=== PATIENT | female | born 2000 | race Two or more races ===

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

== ENCOUNTER 2020-01-21 17:52 | Emergency (ER) | payer SELFPAY ==
--- NOTE | 2020-01-21 18:30 | ER Document Report ---
ED Medical Screen (RME) - General Chief Complaint: Vaginal Bleeding Stated Complaint: HEAVY VAGINAL BLEEDING Time Seen by Provider: 01/21/20 18:26 Mode of Arrival: Ambulatory Information source: Patient Notes: Patient presents complaining of heavy vaginal bleeding for the past week with clots. Patient denies any lightheadedness or dizziness. Patient denies any fever. Patient denies any urinary symptoms. Patient is not presently on any control. I have greeted and performed a rapid initial assessment of this patient. A comprehensive ED assessment and evaluation of the patient, analysis of test results and completion of the medical decision making process will be conducted by additional ED providers. TRAVEL OUTSIDE OF THE [place] IN LAST 30 DAYS: No - Related Data Allergies/Adverse Reactions: No Known Allergies Allergy (Verified 08/26/15 20:26) Past Medical History Renal/ Medical History: Denies: Hx Peritoneal Dialysis - Immunizations Immunizations up to date: Yes Physical Exam - Vital signs Vitals: Temp Pulse Resp BP Pulse Ox 98.5 F 82 16 144/82 H 100 01/21/20 18:10 01/21/20 18:10 01/21/20 18:10 01/21/20 18:10 01/21/20 18:10 - General General appearance: Appears well, Alert In distress: None Course - Vital Signs Vital signs: Temp Pulse Resp BP Pulse Ox 98.5 F 82 16 144/82 H 100 01/21/20 18:10 01/21/20 18:10 01/21/20 18:10 01/21/20 18:10 01/21/20 18:10
[2020-01-21 19:21] LABS: ABSOLUTE EOSINOPHILS # (AUTO) 0.1 10^3/uL (0.0-0.6); ABSOLUTE LYMPHOCYTES (AUTO) 2.9 10^3/uL (0.5-4.7); ABSOLUTE MONOCYTES (AUTO) 0.5 10^3/uL (0.1-1.4); ABSOLUTE NEUT (AUTO) 2.5 10^3/uL (1.7-8.2); BASOPHILS % (AUTO) 0.4 % (0-2); EOSINOPHILS % (AUTO) 0.9 % (0-6); HEMATOCRIT 36.2 % (36.0-47.0); HEMOGLOBIN 12.7 g/dL (12.0-15.5); LYMPHOCYTES % (AUTO) 47.5 % (13-45); MEAN CORPUSCULAR HEMOGLOBIN 26.5 pg (27.0-33.4); MEAN CORPUSCULAR HGB CONC 35.1 g/dL (32.0-36.0); MEAN CORPUSCULAR VOLUME 75 fl (80-97); PLATELET COUNT 322 10^3/uL (150-450); RED CELL DISTRIBUTION WIDTH 14.7 % (11.5-14.0); SEGMENTED NEUTROPHILS % (AUTO) 42.2 % (42-78); TOTAL CELLS COUNTED % (AUTO) 100 %
[2020-01-21 19:25] LABS: ALBUMIN 4.3 g/dL (3.7-5.6); ALKALINE PHOSPHATASE 105 U/L (50-135); ANION GAP 12 (5-19); ASPARTATE AMINO TRANSFERASE 60 U/L (5-30); BILIRUBIN,DIRECT 0.3 mg/dL (0.0-0.4); BILIRUBIN,TOTAL 0.5 mg/dL (0.2-1.3); BLOOD UREA NITROGEN 11 mg/dL (7-20); CALCIUM 9.5 mg/dL (8.4-10.2); CARBON DIOXIDE 24 mmol/L (22-30); CHLORIDE 105 mmol/L (98-107); GLUCOSE 89 mg/dL (75-110); NEONATAL BILIRUBIN RESULT 0.2 mg/dL (0.1-1.1); TOTAL PROTEIN 7.5 g/dL (6.3-8.2)
--- NOTE | 2020-01-21 19:58 | RADIOLOGY REPORT (SQ) ---
EXAM DESCRIPTION: U/S NON OB PEL W/DOPPLER IMAGES COMPLETED DATE/TIME: 01/21/2020 7:40 pm REASON FOR STUDY: heavy vag bleeding COMPARISON: None. TECHNIQUE: Dynamic and static grayscale images acquired of the pelvis via transabdominal approach an d recorded on PACS. Additional selected color Doppler and spectral images recorded. LIMITATIONS: None. FINDINGS: UTERUS: Contour normal. No mass. ENDOMETRIAL STRIPE: No focal or generalized thickening. No masses. CERVIX: 2 cm. RIGHT OVARY AND DOPPLER: Normal size. No worrisome masses. Multiple follicles. Normal arterial vasc ular flow without evidence for torsion. LEFT OVARY AND DOPPLER: Normal size. No worrisome masses. Multiple follicles. Normal arterial vascu lar flow without evidence for torsion. FREE FLUID: None noted. OTHER: No other significant finding. MEASUREMENTS: UTERUS: 6 x 4 x 3 cm. ENDOMETRIAL STRIPE: 8 mm. There may be some blood in the endometrial canal. RIGHT OVARY: 4 x 3 x 2 cm LEFT OVARY: 3 x 4 x 2 cm IMPRESSION: Multiple ovarian follicles are seen bilaterally. This may suggest polycystic ovarian sy ndrome. No other significant finding. TECHNICAL DOCUMENTATION: JOB ID: [id number] 2010 [employer]- All Rights Reserved Rev-09/05 Reading location - IP/workstation name: [email or web address]
[2020-01-22 00:02] LABS: CHLAM PCR NOT DETECTED (NOT DETECT)
--- NOTE | 2020-01-22 01:14 | ER Document Report ---
ED General - General Chief Complaint: Vaginal Bleeding Stated Complaint: HEAVY VAGINAL BLEEDING Time Seen by Provider: 01/21/20 18:26 Mode of Arrival: Ambulatory Information source: Patient, Friend Notes: Patient is a 19-year-old female presenting to the emergency department chief complaint of dysfunctional uterine bleeding. She states she has been on her period for about 2 weeks. She states normally it lasts about 3 to 4 days. Patient states that the intensity of the bleeding is about the same she is using 3-4 pads per day however this is been ongoing for 14 days. Patient denies any other complaints no nausea vomiting diarrhea fevers chills cough or cold symptoms. TRAVEL OUTSIDE OF THE [place] IN LAST 30 DAYS: No - HPI Onset: Other - 2 wk Onset/Duration: Persistent Quality of pain: Cramping Severity: Mild Pain Level: 1 Associated symptoms: None Exacerbated by: Denies Relieved by: Denies Similar symptoms previously: No Recently seen / treated by doctor: No - Related Data Allergies/Adverse Reactions: No Known Allergies Allergy (Verified 08/26/15 20:26) Past Medical History - General Information source: Patient - Social History Smoking Status: Never Smoker Chew tobacco use (# tins/day): No Frequency of alcohol use: None Drug Abuse: None Lives with: Family Family History: Reviewed & Not Pertinent Patient has suicidal ideation: No Patient has homicidal ideation: No - Medical History Medical History: Negative Renal/ Medical History: Denies: Hx Peritoneal Dialysis Surgical Hx: Negative - Immunizations Immunizations up to date: Yes Review of Systems - Review of Systems Notes: REVIEW OF SYSTEMS: CONSTITUTIONAL : Denies fever, chills, or sweats. Denies recent illness. EENT: Denies eye, ear, throat, or mouth pain or symptoms. Denies nasal or sinus congestion. CARDIOVASCULAR: Denies chest pain. RESPIRATORY: Denies cough, cold, or chest congestion. Denies shortness of breath, difficulty breathing, or wheezing. GASTROINTESTINAL: Denies abdominal pain. Denies nausea, vomiting, or diarrhea. Denies constipation. GENITOURINARY: Per HPI MUSCULOSKELETAL: Denies neck or back pain or joint pain or swelling. SKIN: Denies rash or skin lesions. HEMATOLOGIC : Denies easy bruising or bleeding. NEUROLOGICAL: Denies altered mental status or loss of consciousness. Denies headache. Denies weakness or paralysis or loss of use of either side. Denies problems with gait or speech. Denies sensory or motor loss. PSYCHIATRIC: Denies suicidal or homicidal ideations 10 Systems are negative unless otherwise specified above Physical Exam - Vital signs Vitals: Temp Pulse Resp BP Pulse Ox 98.5 F 82 16 144/82 H 100 01/21/20 18:10 01/21/20 18:10 01/21/20 18:10 01/21/20 18:10 01/21/20 18:10 - Notes Notes: PHYSICAL EXAMINATION: GENERAL: Well-appearing, well-nourished and in no acute distress. HEAD: Atraumatic, normocephalic. EYES: Pupils equal round and reactive to light, extraocular movements intact, sclera anicteric, conjunctiva are normal. ENT: nares patent, oropharynx clear without exudates. Moist mucous membranes. NECK: Normal range of motion, supple without lymphadenopathy, no appreciable JVD LUNGS: Lungs clear to auscultation bilaterally and equal. No wheezes rales or rhonchi. HEART: Regular rate and rhythm without murmurs ABDOMEN: Soft, nontender, normal bowel sounds. No guarding, no rebound. No masses appreciated. EXTREMITIES: Active full range of motion, no pitting or edema. No cyanosis. 2+ pulses x4 NEUROLOGICAL: No focal neurological deficits. Moves all extremities spontaneously and on command. SKIN: Warm, Dry, and intact. Normal turgor, no rashes or lesions noted. Course - Re-evaluation Re-evalutation: 01/22/20 01:14 I did review the patient's laboratory and radiologic results there is question about possibility of PCOS. I recommend that the patient try medroxyprogesterone once daily for the next 5 days and follow-up with 1 of the local [facility] in the local area patient is agreeable with care plan will be discharged home in stable condition. - Vital Signs Vital signs: Temp Pulse Resp BP Pulse Ox 98.5 F 82 16 144/82 H 100 01/21/20 18:10 01/21/20 18:10 01/21/20 18:10 01/21/20 18:10 01/21/20 18:10 - Laboratory Result Diagrams: 01/21/20 18:39 01/21/20 18:39 Laboratory results interpreted by me: 01/21/20 01/21/20 18:39 18:39 MCV 75 L MCH 26.5 L RDW 14.7 H Lymph % (Auto) 47.5 H AST 60 H ALT 94 H - Diagnostic Test Radiology reviewed: Reports reviewed Discharge - Discharge Clinical Impression: DUB (dysfunctional uterine bleeding) Condition: Stable Disposition: HOME, SELF-CARE Additional Instructions: VAGINAL BLEEDING: You are having an episode of abnormal bleeding. Causes of abnormal vaginal bleeding can include miscarriage or tubal , tumors such as cancer or benign fibroids, medication effects, or hormone imbalance. Testing can eliminate unsuspected , tumors, or infection as a cause. "Dysfunctional uterine bleeding" is due to hormone imbalance, and is especially common at times when the normal cycle is disturbed -- whether by recent , use of control pills or hormones, or impending menopause. If the bleeding is innocent, most commonly a short course of ho rmones is given to restore the uterus to normal. Sometimes, the normal menstrual cycle corrects itself naturally. Sometimes, brief hormone therapy, or even a D&C is required. Your physician keshia cosme advise you. Treatment for anemia may be required if bleeding is severe. You should rest and avoid intercourse until the bleeding is controlled. Call the doctor or return for re-examination if you feel faint, have increasing pain, or have a major increase in the amount of bleeding. FIBROIDS: Fibroids are benign growths or tumors in the uterus. They can cause enlargement of the uterus, irregular bleeding, severe bleeding with periods, and abdominal pain. Anemia may result if periods are heavy. Fibroids tend to grow until menopause, then slowly shrink. If fibroids cause severe symptoms, they can be treated surgically. Call or return if vaginal bleeding or pain becomes severe. NORMAL EXAM AND WORKUP: At this time, except for vaginal bleeding, your examination and workup show no significant abnormality. No significant abnormal physical findings were noted. All laboratory, EKG, and imaging (x-ray, CT scans, ultrasound) studies that were ordered show no significant abnormality. Although your examination and all studies that were ordered showed no significant abnormal finding, there are no examinations and no studies that are 100% accurate. There is always the possibility that some abnormality could exist and not be detected with physical examination or within the limits and capabilities of laboratory and other studies. You should return or follow up as you were instructed on your visit today for further evaluation if your symptoms do not resolve. PROVERA: Provera (medroxyprogesterone) is usually used to stop excessive uterine bleeding or to regulate the periods. Provera is a form of progesterone, the hormone that stimulates the uterus lining to mature during the second half of your cycle. High doses of Provera can usually stop uterine bleeding. It's most useful for the abnormal bleeding that occurs when periods are irregular, such as around menopause. Provera usually isn't helpful for bleeding that occurs after Depo- Provera or Norplant. There is often another heavy "period" when you finish the Provera. Afterwards, the periods usually return to normal within a month or two. Contact your doctor if bleeding becomes more severe, or if you develop abdominal pain, lightheadedness, fever, or other new symptoms. FOLLOW-UP CARE: If you have been referred to a physician for follow-up care, call the [facility] office for an appointment as you were instructed or within the next two days. If you experience worsening or a significant change in your symptoms (very heavy bleeding with large clots of blood, passage of tissue, more severe abdominal / pelvic pain or cramping, feeling faint or severe weakness, fever, etc.), notify the physician immediately or return to the Emergency Department at any time for re-evaluation. OBSTETRIC-GYNECOLOGIC ([facility]) PHYSICIANS IN [place]: [facility] [address] [place], [place] [phone] [facility] [address] [place] [address] [phone] Prescriptions: Medroxyprogesterone Acetate 5 mg PO DAILY #7 tablet
[2020-01-22 01:23] VITALS: BP 133/79
== END 2020-01-22 01:31 | disposition home or self-care (01) ==
LOC: ER 17:52
DX: N93.8 Other specified abnormal uterine and vaginal bleeding (principal)
CPT/HCPCS: 36415; 76856; 80053; 84703; 85025; 87491; 87591; 93976; 99284